=== PATIENT | female | born 1995 | race American Indian/Alaskan Native ===

== ENCOUNTER 2023-05-01 15:04 | Emergency (ER) | payer MEDICAID ==
[2023-05-01 15:28] LABS: APPEARANCE,URINE SLIGHTLY CLOUDY (CLEAR); BILIRUBIN,URINE NEGATIVE (NEGATIVE); COLOR,URINE YELLOW (YELLOW); GLUCOSE,URINE NEGATIVE (NEGATIVE); KETONES,URINE 80 (NEGATIVE); LEUKOCYTE ESTERASE,URINE SMALL (NEGATIVE); NITRITE,URINE POSITIVE (NEGATIVE); OCCULT BLOOD,URINE MODERATE (NEGATIVE); PH,URINE 7.5 (5.0-9.0); PROTEIN,URINE 30 (NEGATIVE); UROBILINOGEN,URINE 0.2 mg/dL (0.2-1.0)
[2023-05-01 15:46] LABS: EPITHELIAL CELLS,URINE MANY /HPF (NOT SEEN)
[2023-05-01 15:47] LABS: BACTERIA,URINE MODERATE /HPF (0-FEW/HPF); RBC,URINE >100 /HPF (0-5)
[2023-05-01] MEDS ORDERED: cefTRIAXone 1 GM, Lidocaine 1% 2.1 ML IM ONE ×2 (17:02)
[2023-05-01] MEDS ORDERED: Take Home: Ciprofloxacin HCl 500 MG, 6 Tab Pack PO ONE (17:03)
[2023-05-01] MEDS ORDERED: Take Home: metroNIDAZOLE 250 MG Tab, 8 Tab Pack PO ONE (17:03)
[2023-05-01] MEDS ORDERED: metroNIDAZOLE 250 MG Tab PO ONE (17:03)
[2023-05-01] MEDS ORDERED: Take Home: Phenazopyridine 95 MG Tab, 4 Tab Pack PO ONE (17:03)
== END 2023-05-01 17:23 | disposition home or self-care (01) ==
LOC: DL.ED 15:04
DX: N12 Tubulo-interstitial nephritis, not specified as acute or chronic (principal); N76.0 Acute vaginitis; Z91.011 Allergy to milk products
CPT/HCPCS: 81001; 81025; 87086; 87088; 87186; 87491; 87563; 87591; 96372; 99284; A9270; J0696; J3490

== ENCOUNTER 2024-09-08 18:45 | Emergency (ER) | payer MEDICAID ==
[2024-09-08] MEDS: Ketorolac 30 MG/ML SDV IM ONE (19:38)
== END 2024-09-08 19:39 | disposition home or self-care (01) ==
LOC: DL.ED 18:45
DX: S22.42XA Multiple fractures of ribs, left side, initial encounter for closed fracture (principal); Z91.011 Allergy to milk products; W01.0XXA Fall on same level from slipping, tripping and stumbling without subsequent striking against object, initial encounter
CPT/HCPCS: 71101; 96372; 99283; J1885

== ENCOUNTER 2025-02-04 14:43 | Inpatient (IN) | payer MEDICAID ==
[2025-02-04] MEDS: Lidocaine 2% Viscous Solution 15 ML UD PO ONE (15:19)
[2025-02-04 15:35] LABS: BASOPHILS PERCENT AUTO 0.3 % (0.0-1.0); EOSINOPHILS PERCENT AUTO 4.3 % (1.0-3.0); LYMPHOCYTES PERCENT AUTO 13.4 % (20.5-50.1); MONOCYTES PERCENT AUTO 11.9 % (2-8); NEUTROPHILS PERCENT AUTO 70.1 % (42.2-75.2); PLATELET COUNT,PLT 188 10^3/uL (150-450); RED BLOOD CELL COUNT 5.12 10^6/uL (4.2-5.4); WHITE BLOOD CELL COUNT,WBC 5.8 10^3/uL (5.0-10.0)
[2025-02-04 15:51] LABS: A/G RATIO 0.8; ALANINE AMINOTRANSFERASE,ALT 93.0 U/L (14-59); ASPARTATE AMNIOTRANSFERASE,AST 64.0 U/L (15-37); BILIRUBIN TOTAL 0.8 mg/dL (0.2-1.0); BLOOD UREA NITROGEN,BUN 8.0 mg/dL (7-18); CARBON DIOXIDE,CO2 30.0 mmol/L (21-32); CHLORIDE,CL 101.0 mmol/L (98-107); CREATININE 0.59 mg/dL (0.55-1.02); EST CRCL DRUG DOSING (CG) 107.64 mL/min; GLUCOSE RANDOM 96.0 mg/dL (70-99); POTASSIUM,K 4.6 mmol/L (3.5-5.1); PROTEIN TOTAL,TP 8.8 g/dL (6.4-8.2); SODIUM,NA 137.0 mmol/L (136-145)
[2025-02-04 15:55] LABS: ESTIMATED GFR 123.0 mL/min (>=60); LACTIC ACID 0.9 mmol/L (0.4-2.0)
[2025-02-04] MEDS: Iopamidol 755 Mg/ML 100 ML Bottle IVPUSH ONE (16:18)
[2025-02-04] MEDS: Ketorolac 30 MG/ML SDV IVPUSH ONE (17:12)
[2025-02-04] MEDS: Clindamycin in 0.9 % Sod Chlor 900 MG in Premix Bag 1 BAG IV ONE (17:13)
[2025-02-04] MEDS ORDERED: hydrALAZINE 20 MG/ML SDV IVPUSH PRN (19:18)
[2025-02-04] MEDS: Sodium Chloride 0.9% 10 ML Syringe FLUSH PRN (19:51)
[2025-02-04] MEDS: Dexamethasone 4 MG/ML SDV IVPUSH ONE (19:52)
[2025-02-04] MEDS: MVI, Adult with Vitamin K 10 ML, Folic Acid 1 MG, Thiamine 100 MG in Lactated Ringers 1... IV ONE (20:27)
[2025-02-04] MEDS: Saccharomyces Boulardii (Probiotic) 250 MG Cap PO SCH (20:38)
[2025-02-04] MEDS: Al and Mag Hydroxide/Diphenhydramine/Lidocaine/Simethicone 237 ML Bottle PO SCH (21:23)
[2025-02-04] MEDS: Ampicillin/Sulbactam Na 1.5 GM in Sodium Chloride 0.9% 100 ML IV SCH (23:07)
[2025-02-04 23:44] LABS: AMPHETAMINES,URINE NEGATIVE (NEGATIVE); BARBITURATES,URINE NEGATIVE (NEGATIVE); MDMA (ECSTASY), URINE NEGATIVE (NEGATIVE); METHAMPHETAMINES,URINE POSITIVE (NEGATIVE); OPIATES,URINE NEGATIVE (NEGATIVE); OXYCODONE,URINE NEGATIVE (NEGATIVE); PHENCYCLIDINE,URINE NEGATIVE (NEGATIVE); TCA,URINE NEGATIVE (NEGATIVE)
[2025-02-05] MEDS: Acetaminophen/HYDROcodone 325-5 MG Tab PO PRN (07:22)
[2025-02-05] MEDS: Ampicillin/Sulbactam Na 3 GM in Sodium Chloride 0.9% 100 ML IV SCH (11:51)
[2025-02-05 12:00] LABS: BASOPHILS PERCENT AUTO 0.0 % (0.0-1.0); EOSINOPHILS PERCENT AUTO 0.3 % (1.0-3.0); LYMPHOCYTES PERCENT AUTO 5.0 % (20.5-50.1); MONOCYTES PERCENT AUTO 6.9 % (2-8); NEUTROPHILS PERCENT AUTO 87.8 % (42.2-75.2); PLATELET COUNT,PLT 189 10^3/uL (150-450); RED BLOOD CELL COUNT 4.10 10^6/uL (4.2-5.4); WHITE BLOOD CELL COUNT,WBC 7.0 10^3/uL (5.0-10.0)
[2025-02-05 12:20] LABS: ALANINE AMINOTRANSFERASE,ALT 59.0 U/L (14-59); ASPARTATE AMNIOTRANSFERASE,AST 30.0 U/L (15-37); BILIRUBIN TOTAL 0.3 mg/dL (0.2-1.0); BLOOD UREA NITROGEN,BUN 8.0 mg/dL (7-18); CARBON DIOXIDE,CO2 29.0 mmol/L (21-32); CHLORIDE,CL 104.0 mmol/L (98-107); CREATININE 0.53 mg/dL (0.55-1.02); EST CRCL DRUG DOSING (CG) 120.15 mL/min; GLUCOSE RANDOM 135.0 mg/dL (70-99); POTASSIUM,K 4.1 mmol/L (3.5-5.1); PROTEIN TOTAL,TP 6.6 g/dL (6.4-8.2); SODIUM,NA 138.0 mmol/L (136-145)
[2025-02-05 12:21] LABS: A/G RATIO 0.83; ESTIMATED GFR 127.0 mL/min (>=60)
[2025-02-05] MEDS ORDERED: Ampicillin/Sulbactam Na 1.5 GM in Sodium Chloride 0.9% 100 ML IV SCH (20:00)
[2025-02-06 06:36] LABS: BASOPHILS PERCENT AUTO 0.3 % (0.0-1.0); EOSINOPHILS PERCENT AUTO 1.2 % (1.0-3.0); LYMPHOCYTES PERCENT AUTO 20.5 % (20.5-50.1); MONOCYTES PERCENT AUTO 8.2 % (2-8); NEUTROPHILS PERCENT AUTO 69.8 % (42.2-75.2); PLATELET COUNT,PLT 202 10^3/uL (150-450); RED BLOOD CELL COUNT 3.93 10^6/uL (4.2-5.4); WHITE BLOOD CELL COUNT,WBC 6.7 10^3/uL (5.0-10.0)
[2025-02-06 07:03] LABS: ALANINE AMINOTRANSFERASE,ALT 56.0 U/L (14-59); ASPARTATE AMNIOTRANSFERASE,AST 41.0 U/L (15-37); BILIRUBIN TOTAL 0.2 mg/dL (0.2-1.0); BLOOD UREA NITROGEN,BUN 9.0 mg/dL (7-18); CARBON DIOXIDE,CO2 28.0 mmol/L (21-32); CHLORIDE,CL 106.0 mmol/L (98-107); CREATININE 0.49 mg/dL (0.55-1.02); EST CRCL DRUG DOSING (CG) 129.96 mL/min; GLUCOSE RANDOM 96.0 mg/dL (70-99); POTASSIUM,K 3.9 mmol/L (3.5-5.1); PROTEIN TOTAL,TP 6.0 g/dL (6.4-8.2); SODIUM,NA 141.0 mmol/L (136-145)
[2025-02-06 07:31] LABS: A/G RATIO 0.76; ESTIMATED GFR 129.0 mL/min (>=60)
== END 2025-02-06 13:15 | disposition home or self-care (01) | DRG 158 ==
LOC: DL.ED 14:43 → DL.MS 17:58 → DL.ED 18:12
PROVIDERS: ADMIT Internal Medicine; ATTEND Internal Medicine
DX: K04.7 Periapical abscess without sinus (principal); K02.9 Dental caries, unspecified; Z91.018 Allergy to other foods; L03.211 Cellulitis of face; F41.9 Anxiety disorder, unspecified; F32.A Depression, unspecified; D64.9 Anemia, unspecified; F17.200 Nicotine dependence, unspecified, uncomplicated; F12.10 Cannabis abuse, uncomplicated; I10 Essential (primary) hypertension; F15.90 Other stimulant use, unspecified, uncomplicated; Z86.16 Personal history of COVID-19; Z88.8 Allergy status to other drugs, medicaments and biological substances; Z79.899 Other long term (current) drug therapy
CPT/HCPCS: 36415; 70487; 80053; 83605; 83735; 84145; 84703; 85025; 86140; 87040 ×2; 96365; 96375; 99282; 99284; J0737; J1885; J3490; Q9967; 80305-QW; 99223; 99233; 99239; A9270-GY; J0295; J1100; J1171; J1808; J3411; J7030; J7120; J8540